=== PATIENT | female | born 1980 | race Caucasian/White ===

== ENCOUNTER 2018-03-05 07:42 | Emergency (ER) | payer BC, OTHER ==
[2018-03-05 08:29] LABS: ALT/SGPT 20 U/L (12-78); AST/SGOT 13 U/L (15-37); Albumin 3.9 g/dL (3.4-5.0); Alkaline Phosphatase 73 U/L (45-117); BUN Blood Urea Nitrogen 12 mg/dL (7-18); Bicarbonate 25 mmol/L (21-32); Bilirubin Direct < 0.1 mg/dL (0-0.2); Bilirubin Total 0.2 mg/dL (0.2-1.0); Glucose Level 96 mg/dL (74-106); Lipase 177 U/L (73-393); Potassium 3.9 mmol/L (3.5-5.1); Protein, Total 7.4 g/dL (6.4-8.2); Sodium Level 139 mmol/L (136-145)
[2018-03-05] MEDS ORDERED: ONDANSETRON 4 MG/2 ML VIAL ONE (08:36)
[2018-03-05] MEDS ORDERED: KETOROLAC 30 MG/ML INJ ONE (08:36)
[2018-03-05 08:40] LABS: Absolute Lymphocytes (CBC) 2.7 K/uL (0.7-4.9); Absolute Monocytes 1.1 K/uL (0.1-1.3); Absolute Neutrophil 9.6 K/uL (1.8-8.0); Basophils % 0.6 % (0-1.3); Eosinophils % 2.8 % (0-4.4); Hematocrit 40.4 % (36.0-45.0); Lymphocytes % 19.1 % (15.3-44.8); MCH 33.3 pg (27.0-35.0); MCV 94.4 fL (80-100); MPV 7.8 fL (7.6-11.3); Monocytes % 8.3 % (3.3-12.3); RBC Red Blood Cell Count 4.28 M/uL (3.86-4.86)
--- NOTE | 2018-03-05 08:46 | RAD REPORT ---
EXAM DESCRIPTION: CT - Stone Protocol - 03/05/2018 8:24 am CLINICAL HISTORY: Left-sided flank pain, hematuria, prior cholecystectomy COMPARISON: None. TECHNIQUE: Axial 5 mm thick images were obtained without oral or IV contrast. The [id number] span s the entirety of the system including uppermost abdomen and lung bases. All CT scans are performed using dose optimization technique as appropriate and may include automated exposure control or mA/KV adjustment according to patient size. FINDINGS: Mild left-sided hydronephrosis secondary to a 5 mm calcification at the UVJ. No other obst ructing or nonobstructing calculi. No right-sided hydronephrosis. Patient has normal variant retroaor tic left renal vein. No suspicious renal masses. Isodense masses and pyelonephritis are not excluded on a stone protocol CT scan. Urinary bladder is fully contracted limiting assessment. No bladder calc ulus. Imaged portions of the liver, spleen and pancreas show no suspicious findings on non-contrast imaging . No gallbladder or biliary tree abnormality identified. No significant adrenal finding. No suspicious bowel findings. Uterus and ovaries show no suspicious findings. Tubal ligation clips ar e present. No hernia, mass or bulky lymphadenopathy noted. No free air, free fluid or inflammatory stranding. No significant bony abnormality. IMPRESSION: Mild left-sided hydronephrosis secondary to a 5 mm left UVJ calculus. Isodense masses and pyelonephritis are not excluded on stone protocol technique.
--- NOTE | 2018-03-05 08:55 | EDPHYS ---
Physician Documentation [facility] Name: Sadie Powell Age: 38 yrs Sex: Female : 1980 Arrival Date: 03/05/2018 Time: 07:48 Bed 5 Private MD: None, None ED Physician Chris Yusuf HPI: 03/05 08:52 This 38 yrs old Female presents to ER via Ambulatory with complaints of jr8 Abdominal Pain. 08:52 The patient presents with abdominal pain in the left lower quadrant. Onset: The jr8 symptoms/episode began/occurred acutely, yesterday. The symptoms do not radiate. Associated signs and symptoms: Pertinent positives: nausea. The symptoms are described as sharp. Modifying factors: The symptoms are alleviated by nothing, the symptoms are aggravated by nothing. Severity of pain: At its worst the pain was moderate in the emergency department the pain is unchanged. The patient has not experienced similar symptoms in the past. The patient has not recently seen a physician. 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 - Social history:: Smoking status: Patient uses tobacco products, smokes one-half pack cigarettes per day. - Ebola Screening: : Patient denies exposure to infectious person Patient denies travel to an Ebola-affected area in the 21 days before illness onset. ROS: 08:52 Eyes: Negative for injury, pain, redness, and discharge, ENT: Negative for injury, jr8 pain, and discharge, Neck: Negative for injury, pain, and swelling, Cardiovascular: Negative for chest pain, palpitations, and edema, Respiratory: Negative for shortness of breath, cough, wheezing, and pleuritic chest pain, Back: Negative for injury and pain, MS/Extremity: Negative for injury and deformity, Skin: Negative for injury, rash, and discoloration, Neuro: Negative for headache, weakness, numbness, tingling, and seizure. 08:52 Abdomen/GI: Positive for abdominal pain, nausea, Negative for vomiting, diarrhea, constipation, abdominal cramps, abdominal distension, anorexia, dysphagia, hematemesis, black/tarry stool, rectal pain, rectal bleeding, bowel incontinence, flatulence. Exam: 08:52 Eyes: Pupils equal round and reactive to light, extra-ocular motions intact. Lids and jr8 lashes normal. Conjunctiva and sclera are non-icteric and not injected. Cornea within normal limits. Periorbital areas with no swelling, redness, or edema. ENT: Nares patent. No nasal discharge, no septal abnormalities noted. Tympanic membranes are normal and external auditory canals are clear. Oropharynx with no redness, swelling, or masses, exudates, or evidence of obstruction, uvula midline. Mucous membranes moist. Neck: Trachea midline, no thyromegaly or masses palpated, and no cervical lymphadenopathy. Supple, full range of motion without nuchal rigidity, or vertebral point tenderness. No Meningismus. Cardiovascular: Regular rate and rhythm with a normal S1 and S2. No gallops, murmurs, or rubs. Normal PMI, no JVD. No pulse deficits. Respiratory: Lungs have equal breath sounds bilaterally, clear to auscultation and percussion. No rales, rhonchi or wheezes noted. No increased work of breathing, no retractions or nasal flaring. Back: No spinal tenderness. No costovertebral tenderness. Full range of motion. Skin: Warm, dry with normal turgor. Normal color with no rashes, no lesions, and no evidence of cellulitis. MS/ Extremity: Pulses equal, no cyanosis. Neurovascular intact. Full, normal range of motion. Neuro: Awake and alert, GCS 15, oriented to person, place, time, and situation. Cranial nerves II-XII grossly intact. Motor strength 5/5 in all extremities. Sensory grossly intact. Cerebellar exam normal. Normal gait. 08:52 Abdomen/GI: Inspection: abdomen appears normal, Bowel sounds: active, all quadrants, Palpation: soft, in all quadrants, mild abdominal tenderness, in the anterior aspect of left lateral abdomen and left lower quadrant, mass, is not appreciated, rebound tenderness, is not appreciated, voluntary guarding, is not appreciated, involuntary guarding, is not appreciated, no appreciated organomegaly, Indicators: McBurney's point is not tender, Nicole's sign is negative, Rovsing's sign is negative, Liver: no appreciated palpable abnormalities, tenderness, is not appreciated. Vital Signs: 07:57 BP 119 / 85; Pulse 78; Resp 15; Temp 98.2(O); Pulse Ox 99% on R/A; Weight 83.91 kg; ss Height 5 ft. 2 in. (157.48 cm); Pain 6/10; 08:30 BP 115 / 80; Pulse 76; Resp 18; Pulse Ox 98% on R/A; hj 09:05 BP 110 / 82; Pulse 75; Resp 18; Pulse Ox 100% on R/A; hj 07:57 Body Mass Index 33.84 (83.91 kg, 157.48 cm) ss MDM: 07:51 Patient medically screened. jr8 08:52 Data reviewed: vital signs, nurses notes, lab test result(s), radiologic studies, CT jr8 scan, and as a result, I will discharge patient. Data interpreted: Pulse oximetry: on room air is 99 %. Interpretation: normal. Counseling: I had a detailed discussion with the patient and/or guardian regarding: the historical points, exam findings, and any diagnostic results supporting the discharge/admit diagnosis, lab results, radiology results, the need for outpatient follow up, a urologist, to return to the emergency department if symptoms worsen or persist or if there are any questions or concerns that arise at home. 03/05 07:53 Order name: Basic Metabolic Panel; Complete Time: 08:35 03/05 07:53 Order name: CBC with Diff; Complete Time: 08:55 03/05 07:53 Order name: Creatinine for Radiology; Complete Time: 08:35 03/05 07:53 Order name: Hepatic Function; Complete Time: 08:35 03/05 07:53 Order name: Lipase; Complete Time: 08:35 03/05 08:28 Order name: Urine Dipstick--Ancillary (enter results) bd 03/05 07:53 Order name: IV Saline Lock; Complete Time: 08:14 03/05 07:53 Order name: Labs collected and sent; Complete Time: 08:14 03/05 07:53 Order name: Urine Test (obtain specimen); Complete Time: 08:02 03/05 07:53 Order name: Urine Dipstick-Ancillary (obtain specimen); Complete Time: 08:02 03/05 08:09 Order name: CT Stone Protocol; Complete Time: 08:55 jr8 03/05 08:28 Order name: Urine --Ancillary (enter results) bd Administered Medications: 08:33 Drug: TORadol 30 mg Route: IVP; Site: right antecubital; hj 08:33 Follow up: Response: No adverse reaction; Nausea is decreased hj 08:33 Follow up: Response: No adverse reaction; Pain is decreased hj 08:33 Drug: Zofran 4 mg Route: IVP; Site: right antecubital; hj 08:34 Follow up: Response: No adverse reaction; Nausea is decreased Disposition: 03/05/18 08:54 Discharged to Home. Impression: Hydronephrosis with renal and ureteral calculous obstruction. - Condition is Stable. - Discharge Instructions: Kidney Stones, Hydronephrosis. - Prescriptions for ketorolac 10 mg Oral tablet - take 1 tablet by ORAL route every 6 hours not to exceed 40 mg in 24hrs; 12 tablet. Tylenol- Codeine #3 300-30 mg Oral Tablet - take 2 tablet by ORAL route every 6 hours As needed; 30 tablet. Zofran 4 mg Oral Tablet - take 1 tablet by ORAL route every 12 hours As needed; 20 tablet. - Medication Reconciliation Form, Thank You Letter, Antibiotic Education, Prescription Opioid Use form. - Follow up: Jason Adame MD; When: 2 - 3 days; Reason: Recheck today's complaints, Continuance of care, Re-evaluation by your physician. - Problem is new. - Symptoms have improved. Signatures: Dispatcher [employer] EDLA Angi Arceo RN RN ss Roszak, Josh, PA PA jr8 Kentrell Barrett RN RN hj Corrections: (The following items were deleted from the chart) 09:06 08:54 03/05/2018 08:54 Discharged to Home. Impression: Hydronephrosis with renal and hj ureteral calculous obstruction. Condition is Stable. Forms are Medication Reconciliation Form, Thank You Letter, Antibiotic Education, Prescription Opioid Use. Follow up: Jason Adame; When: 2 - 3 days; Reason: Recheck today's complaints, Continuance of care, Re-evaluation by your physician. Problem is new. Symptoms have improved. jr8
--- NOTE | 2018-03-05 08:55 | ER ---
Nurse's Notes [facility] Name: Sadie Powell Age: 38 yrs Sex: Female : 1980 Arrival Date: 03/05/2018 Time: 07:48 Bed 5 Private MD: None, None Diagnosis: Hydronephrosis with renal and ureteral calculous obstruction Presentation: 03/05 07:50 Presenting complaint: Patient states: intermittent LLQ pain that began last night and ss has gotten worse this morning. Pt reports pain is sharp, shooting and at times feels as if it shoots to RLQ. Transition of care: patient was not received from another setting of care. Onset of symptoms was March 03, 2018. Risk Assessment: Do you want to hurt yourself or someone else? Patient reports no desire to harm self or others. Initial Sepsis Screen: Does the patient have a suspected source of infection? No. Patient's initial sepsis screen is negative. Care prior to arrival: None. 07:50 Method Of Arrival: Ambulatory ss 07:50 Acuity: RENÉE 3 ss 08:05 Initial Sepsis Screen: Does the patient meet any 2 criteria? No. Patient's initial hj sepsis screen is negative. Triage Assessment: 08:04 General: Appears in no apparent distress. uncomfortable, Behavior is calm, cooperative, hj appropriate for age. Pain: Complains of pain in abdomen. GI: Abdomen is non-distended, Bowel sounds present X 4 quads. Reports lower abdominal pain. 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 - Social history:: Smoking status: Patient uses tobacco products, smokes one-half pack cigarettes per day. - Ebola Screening: : Patient denies exposure to infectious person Patient denies travel to an Ebola-affected area in the 21 days before illness onset. Screenin:03 Abuse screen: Denies threats or abuse. Denies injuries from another. Nutritional hj screening: No deficits noted. Tuberculosis screening: No symptoms or risk factors identified. Fall Risk None identified. Assessment: 08:05 GI: Abd is soft and non tender. hj Vital Signs: 07:57 BP 119 / 85; Pulse 78; Resp 15; Temp 98.2(O); Pulse Ox 99% on R/A; Weight 83.91 kg; ss Height 5 ft. 2 in. (157.48 cm); Pain 6/10; 08:30 BP 115 / 80; Pulse 76; Resp 18; Pulse Ox 98% on R/A; hj 09:05 BP 110 / 82; Pulse 75; Resp 18; Pulse Ox 100% on R/A; hj 07:57 Body Mass Index 33.84 (83.91 kg, 157.48 cm) ED Course: 07:48 Patient arrived in ED. mr 07:48 None, None is Private Physician. mr 07:50 Arm band placed on right wrist. ss 07:51 Alexx Berumen PA is PHCP. jr8 07:51 Chris Yusuf MD is Attending Physician. jr8 07:51 Triage completed. ss 07:52 Kentrell Barrett, LIBIA is Primary Nurse. hj 08:03 Initial lab(s) drawn, by in, sent to lab. Inserted saline lock: 22 gauge in right hj antecubital area, using aseptic technique. Blood collected. 08:05 Patient has correct armband on for positive identification. Placed in gown. Bed in low hj position. Call light in reach. Side rails up X 1. 08:21 CT completed. Patient tolerated procedure well. Patient moved to CT via wheelchair. jg6 Patient moved back from CT. 08:24 CT Stone Protocol In Process Unspecified. EDMS 08:54 Jason Adame MD is Referral Physician. jr8 09:04 No provider procedures requiring assistance completed. IV discontinued, intact, hj bleeding controlled, No redness/swelling at site. Pressure dressing applied. Administered Medications: 08:33 Drug: TORadol 30 mg Route: IVP; Site: right antecubital; hj 08:33 Follow up: Response: No adverse reaction; Nausea is decreased hj 08:33 Follow up: Response: No adverse reaction; Pain is decreased hj 08:33 Drug: Zofran 4 mg Route: IVP; Site: right antecubital; hj 08:34 Follow up: Response: No adverse reaction; Nausea is decreased hj Outcome: 08:54 Discharge ordered by . jr8 09:04 Discharged to home ambulatory. hj 09:04 Condition: stable 09:04 Discharge instructions given to patient, Instructed on discharge instructions, follow up and referral plans. medication usage, Demonstrated understanding of instructions, follow-up care, medications, Prescriptions given X 3. 09:06 Patient left the ED. george Signatures: Dispatcher [employer] [facility] Muna MenchacaAngi ashford, Alexx Reed RN, PA PA jr8 Kentrell Barrett RN RN hj Garcia, Jessica j6
[2018-03-05 10:43] LABS: Urine Blood 3+ (NEG); Urine Glucose NEGATIVE (NEG); Urine Protein 1+ (NEG); Urine Specific Gravity >1.030 (1.005-1.030); Urine pH 5.5 (5.0-7.0)
== END 2018-03-05 09:06 | disposition home or self-care (01) ==
LOC: ER 07:42
DX: N13.2 Hydronephrosis with renal and ureteral calculous obstruction (principal); F17.210 Nicotine dependence, cigarettes, uncomplicated
CPT/HCPCS: 36415; 74176; 76377; 80048; 80076; 81003; 81025; 83690; 85025; 96374; 96375; 99284; J2405

== ENCOUNTER 2018-10-25 20:09 | Emergency (ER) | payer BC, OTHER ==
[2018-10-25] MEDS ORDERED: KETOROLAC 30 MG/ML INJ ONE (23:43)
--- NOTE | 2018-10-26 00:03 | ER ---
Nurse's Notes [facility] Name: Sadie Powell Age: 38 yrs Sex: Female : 1980 Arrival Date: 10/25/2018 Time: 20:14 Bed 24 Private MD: Diagnosis: Sciatica, right side Presentation: 10/25 20:41 Presenting complaint: Patient states: Lower back pain that radiates down the right leg. la1 Transition of care: patient was not received from another setting of care. Onset of symptoms was October 25, 2018. Risk Assessment: Do you want to hurt yourself or someone else? Patient reports no desire to harm self or others. Initial Sepsis Screen: Does the patient meet any 2 criteria? No. Patient's initial sepsis screen is negative. Does the patient have a suspected source of infection? No. Patient's initial sepsis screen is negative. Care prior to arrival: None. 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 - Social history:: Smoking status: Patient uses tobacco products, smokes one-half pack cigarettes per day. - Ebola Screening: : No symptoms or risks identified at this time. Screenin:09 Abuse screen: Denies threats or abuse. Denies injuries from another. Nutritional mg2 screening: No deficits noted. Tuberculosis screening: No symptoms or risk factors identified. Fall Risk None identified. Assessment: 23:08 General: Appears in no apparent distress. comfortable, Behavior is calm, cooperative. mg2 Pain: Complains of pain in back Pain does not radiate. Pain currently is 8 out of 10 on a pain scale. Quality of pain is described as aching, Pain began gradually, 1 day ago. Is intermittent. Neuro: Level of Consciousness is awake, alert, obeys commands, Oriented to person, place, time, situation. Cardiovascular: Capillary refill < 3 seconds Patient's skin is warm and dry. Respiratory: Airway is patent Respiratory effort is even, unlabored, Respiratory pattern is regular, symmetrical. GI: No signs and/or symptoms were reported involving the gastrointestinal system. : Urine is clear. EENT: No signs and/or symptoms were reported regarding the EENT system. Derm: Skin is intact, is healthy with good turgor, Skin is pink, warm \T\ dry. normal. Musculoskeletal: Circulation, motion, and sensation intact. Capillary refill < 3 seconds, Reports pain in back. Vital Signs: 20:42 BP 113 / 78; Pulse 74; Resp 16; Temp 97.4; Pulse Ox 98% on R/A; Weight 81.65 kg; Height la1 5 ft. 2 in. (157.48 cm); 23:09 BP 101 / 73; Pulse 71; Resp 18; Temp 98; Pulse Ox 98% on R/A; Pain 7/10; mg2 10/26 00:20 BP 110 / 70; Pulse 75; Resp 18; Temp 98; Pulse Ox 100% on R/A; Pain 2/10; mg2 10/25 20:42 Body Mass Index 32.92 (81.65 kg, 157.48 cm) la1 ED Course: 10/25 20:14 Patient arrived in ED. es 20:42 Triage completed. la1 20:42 Arm band placed on right wrist. la1 22:33 Reza Love, RN is Primary Nurse. mg2 23:09 Patient has correct armband on for positive identification. Pulse ox on. NIBP on. Door mg2 closed. Warm blanket given. 23:10 No provider procedures requiring assistance completed. mg2 23:14 Harjit Sepulveda PA is PHCP. cp 23:[address] MD is Attending Physician. cp 10/26 00:21 Patient did not have IV access during this emergency room visit. mg2 Administered Medications: 10/25 23:20 CANCELLED (Physician Discretion): TORadol 60 mg IM once cp 23:30 Drug: TORadol 60 mg Route: IM; Site: right gluteus; mg2 10/26 00:19 Follow up: Response: No adverse reaction; Marked relief of symptoms mg2 Outcome: 00:03 Discharge ordered by . cp 00:21 Discharged to home ambulatory, with family. mg2 00:21 Condition: stable 00:21 Discharge instructions given to patient, family, Instructed on discharge instructions, follow up and referral plans. medication usage, Demonstrated understanding of instructions, follow-up care, medications, Prescriptions given X 3. 00:21 Patient left the ED. mg2 Signatures: Sarahy Bedoya Lee, RN RN la1 Harjit Sepulveda PA PA cp Reza Love, RN RN mg2
--- NOTE | 2018-10-26 00:04 | EDPHYS ---
Physician Documentation [facility] Name: Sadie Powell Age: 38 yrs Sex: Female : 1980 Arrival Date: 10/25/2018 Time: 20:14 Bed 24 Private MD: ED Physician Terry Lane HPI: 10/25 23:20 This 38 yrs old Female presents to ER via Ambulatory with complaints of Back cp Pain. 23:20 The patient presents with pain that is acute, with no known mechanism of injury. The cp symptoms are located in the low back. Onset: The symptoms/episode began/occurred 4 day(s) ago. The pain radiates to the posterior aspect of right leg. Associated signs and symptoms: Pertinent negatives: abdominal pain, constipation, fever, hematuria, incontinence, numbness, urinary retention, weakness. The problem was sustained from unknown cause. Modifying factors: the patient symptoms are aggravated by movement. Severity of symptoms: in the emergency department the symptoms are unchanged, despite home interventions. 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 - Social history:: Smoking status: Patient uses tobacco products, smokes one-half pack cigarettes per day. - Ebola Screening: : No symptoms or risks identified at this time. ROS: 23:35 Constitutional: Negative for body aches, chills, fever, poor PO intake. cp 23:35 Eyes: Negative for injury, pain, redness, and discharge. cp 23:35 Cardiovascular: Negative for chest pain, edema. 23:35 Respiratory: Negative for cough, shortness of breath, wheezing. 23:35 Abdomen/GI: Negative for abdominal pain, vomiting, diarrhea, constipation, bowel incontinence. 23:35 Back: Positive for pain at rest, pain with movement. 23:35 MS/extremity: Positive for of the posterior aspect right leg, radiating pain, Negative for injury or acute deformity. 23:35 Neuro: Negative for gait disturbance, numbness, weakness. 23:35 All other systems are negative. Exam: 23:38 Constitutional: The patient appears in no acute distress, alert, awake, non-toxic, well cp developed, well nourished. 23:38 Head/Face: Normocephalic, atraumatic. cp 23:38 Eyes: Periorbital structures: appear normal, Conjunctiva: normal, no exudate, no injection, Sclera: no appreciated abnormality, Lids and lashes: appear normal, bilaterally. 23:38 ENT: External ear(s): are unremarkable, Nose: is normal, Mouth: Lips: moist, Oral mucosa: moist, Posterior pharynx: is normal, airway is patent. 23:38 Neck: ROM/movement: is normal, is supple, without pain, no range of motions limitations, no nuchal rigidity. 23:38 Chest/axilla: Inspection: normal, Palpation: is normal, no crepitus, no tenderness. 23:38 Cardiovascular: Rate: normal, Rhythm: regular. 23:38 Respiratory: the patient does not display signs of respiratory distress, Respirations: normal, no use of accessory muscles, no retractions, no splinting, no tachypnea. 23:38 Abdomen/GI: Inspection: abdomen appears normal, Palpation: abdomen is soft and non-tender, in all quadrants. 23:38 Back: pain, that is moderate, of the right low back, ROM is painful, with flexion, Straight leg raises: of both lower extremities does not illicit pain. 23:38 Neuro: Motor: moves all fours, strength is normal, Sensation: is normal, Gait: is steady, Deep tendon reflexes are 2+ (normal) in the right patellar, right Achilles, left patellar and left Achilles. Vital Signs: 20:42 BP 113 / 78; Pulse 74; Resp 16; Temp 97.4; Pulse Ox 98% on R/A; Weight 81.65 kg; Height la1 5 ft. 2 in. (157.48 cm); 23:09 BP 101 / 73; Pulse 71; Resp 18; Temp 98; Pulse Ox 98% on R/A; Pain 7/10; mg2 10/26 00:20 BP 110 / 70; Pulse 75; Resp 18; Temp 98; Pulse Ox 100% on R/A; Pain 2/10; mg2 10/25 20:42 Body Mass Index 32.92 (81.65 kg, 157.48 cm) la1 MDM: 10/25 23:15 Patient medically screened. cp 10/25 23:15 Order name: Urine Dipstick-Ancillary (obtain specimen); Complete Time: 23:25 cp 10/25 23:15 Order name: Urine Test (obtain specimen); Complete Time: 23:25 cp Administered Medications: 23:20 CANCELLED (Physician Discretion): TORadol 60 mg IM once cp 23:30 Drug: TORadol 60 mg Route: IM; Site: right gluteus; mg2 10/26 00:19 Follow up: Response: No adverse reaction; Marked relief of symptoms mg2 Disposition: 10/26/18 00:03 Discharged to Home. Impression: Sciatica, right side. - Condition is Stable. - Discharge Instructions: Sciatica, Back Exercises. - Prescriptions for Cyclobenzaprine 10 mg Oral Tablet - take 1 tablet by ORAL route every 8 hours As needed no driving while taking medication; 20 tablet. Medrol (Giovanny) 4 mg Oral Tablets, Dose Pack - take 1 tablet by ORAL route as directed - follow package instructions; 1 packet. Ultracet 37.5- 325 mg Oral Tablet - take 1 tablet by ORAL route every 6 hours - for up to 5 days; do not exceed 8 tablets per day. no driving while taking medication; 20 tablet. - Medication Reconciliation Form, Thank You Letter, Antibiotic Education, Prescription Opioid Use form. - Follow up: Private Physician; When: 2 - 3 days; Reason: Recheck today's complaints. - Problem is new. - Symptoms have improved. Signatures: Maged Eagle, RN RN la1 Harjit Sepulveda PA PA cp Reza Love RN RN mg2 Corrections: (The following items were deleted from the chart) 10/25 23:20 23:20 TORadol 60 mg IM once ordered. cp cp 10/26 00:21 00:03 10/26/2018 00:03 Discharged to Home. Impression: Sciatica, right side. Condition mg2 is Stable. Forms are Medication Reconciliation Form, Thank You Letter, Antibiotic Education, Prescription Opioid Use. Follow up: Private Physician; When: 2 - 3 days; Reason: Recheck today's complaints. Problem is new. Symptoms have improved. cp
== END 2018-10-26 00:21 | disposition home or self-care (01) ==
LOC: ER 20:09
DX: M54.32 Sciatica, left side (principal); F17.210 Nicotine dependence, cigarettes, uncomplicated
CPT/HCPCS: 96372; 99283